=== PATIENT | male | born 1995 | race Hispanic/Latino ===

== ENCOUNTER 2021-02-20 14:09 | Emergency (ER) | payer OTHER ==
[2021-02-20] MEDS ORDERED: TETANUS,DIPH,PERTUSS(ACELL) VACCINE 0.5 ML SYRINGE IM ONE (16:53)
--- NOTE | 2021-02-20 16:55 | Emergency Department Report ---
ED General Adult HPI - General Chief complaint: Extremity Injury, Lower Stated complaint: XRAY OF FOOT Time Seen by Provider: 02/20/21 16:35 Source: patient Mode of arrival: Ambulatory Limitations: No Limitations - History of Present Illness Initial comments: 25-year-old male patient presents with complaints of left foot injury today. He states he dropped a 1300 pound trailer on his left foot and great toe. He reports there was some bleeding. Pain was improved with ibuprofen. He rates his current pain as a 3/10 in severity and denies any numbness or difficulty moving his foot or toes. He is unsure when his last tetanus vaccination was. He denies prior medical history. - Related Data Previous Rx's Medication Instructions Recorded Last Taken Type Ibuprofen [Motrin 800 MG tab] 800 mg PO Q8HR PRN #20 tablet 02/20/21 Unknown Rx cephALEXin [Keflex] 500 mg PO Q8HR 7 Days #21 cap 02/20/21 Unknown Rx Allergies Allergy/AdvReac Type Severity Reaction Status Date / Time No Known Allergies Allergy Unverified 02/20/21 16:23 ED Review of Systems ROS: Stated complaint: XRAY OF FOOT Other details as noted in HPI Musculoskeletal: arthralgia. denies: joint swelling Skin: denies: change in color Neurological: denies: numbness, paresthesias, abnormal gait ED Past Medical Hx - Past Medical History Previous Medical History?: No - Surgical History Past Surgical History?: No - Medications Home Medications: Home Medications Medication Instructions Recorded Confirmed Last Taken Type Ibuprofen [Motrin 800 MG tab] 800 mg PO Q8HR PRN #20 tablet 02/20/21 Unknown Rx cephALEXin [Keflex] 500 mg PO Q8HR 7 Days #21 cap 02/20/21 Unknown Rx ED Physical Exam - General Limitations: No Limitations General appearance: alert, in no apparent distress - Head Head exam: Present: atraumatic, normocephalic - Eye Eye exam: Present: normal appearance. Absent: scleral icterus - Respiratory Respiratory exam: Absent: respiratory distress - Cardiovascular Cardiovascular Exam: Present: regular rate - Extremities Exam Extremities exam: Present: other (Left great toe tenderness to palpation noted with two tiny lacerations not requiring closure; no obvious foreign bodies noted; patient has normal sensation of the toes and foot; normal pedal pulses noted; mild bruising to the great toe noted) - Neurological Exam Neurological exam: Present: alert, oriented X3 - Psychiatric Psychiatric exam: Present: normal affect, normal mood - Skin Skin exam: Present: warm, dry, normal color. Absent: rash ED Course Vital Signs 02/20/21 16:22 Temperature 98.6 F Pulse Rate 68 Respiratory 16 Rate Blood Pressure 135/73 O2 Sat by Pulse 100 Oximetry ED Medical Decision Making - Radiology Data Radiology results: report reviewed XR foot 3+V LT INDICATION: great toe and forefoot crush injury. COMPARISON: No relevant prior imaging study available. FINDINGS: There is a mildly comminuted but minimally displaced longitudinal oblique fracture through the distal phalanx of the great toe. No intra-articular extension is seen. No additional fractures are identified. No foreign bodies are seen in the soft tissues. IMPRESSION: 1. Distal phalanx great toe fracture as above. - Medical Decision Making 25-year-old male patient presents with complaints of left foot injury today. He states he dropped a 1300 pound trailer on his left foot and great toe. He reports there was some bleeding. Pain was improved with ibuprofen. He rates his current pain as a 3/10 in severity and denies any numbness or difficulty moving his foot or toes. He is unsure when his last tetanus vaccination was. He denies prior medical history. X-ray shows comminuted fracture of the distal left great toe. Given small open wounds, patient's foot was soaked in Betadine water solution and irrigated. Sarmad sporin was placed on wound with a sterile dressing. Afshin tape applied to stabilize toe. Discussed open fracture, wound care, and importance of follow-up with orthopedics within 2 to 3 days. Also discussed signs and symptoms that should prompt immediate return to the emergency department in detail with patient who verbalizes understanding. He is well-appearing, his vitals are normal, he is stable for discharge home. Patient states understanding of diagnosis and denies any further questions at this time. Critical care attestation.: If time is entered above; I have spent that time in minutes in the direct care of this critically ill patient, excluding procedure time. ED Disposition Clinical Impression: Open fracture of left great toe Disposition: HOME / SELF CARE / HOMELESS Is pt being admited?: No Condition: Stable Instructions: Toe Fracture, [id number], Nonsutured Laceration Care Prescriptions: cephALEXin [Keflex] 500 mg PO Q8HR 7 Days #21 cap Ibuprofen [Motrin 800 MG tab] 800 mg PO Q8HR PRN #20 tablet PRN Reason: pain Referrals: [facility] [Provider Group] - 2-3 Days Forms: Work/School Release Form(ED)
--- NOTE | 2021-02-20 17:25 | XRay Report ---
XR foot 3+V LT INDICATION: great toe and forefoot crush injury. COMPARISON: No relevant prior imaging study available. FINDINGS: There is a mildly comminuted but minimally displaced longitudinal oblique fracture through the distal phalanx of the great toe. No intra-articular extension is seen. No additional fractures are identifi ed. No foreign bodies are seen in the soft tissues. IMPRESSION: 1. Distal phalanx great toe fracture as above. Signer Name: Giancarlo Waite MD Signed: 02/20/2021 5:21 PM Workstation Name: [id number]
[2021-02-20] MEDS ORDERED: NEOMY 3.5 MG/BACIT 400 UNITS/POLY B 5000 UNITS/GM OINT PACKET TP STA (17:36)
[2021-02-20 20:10] VITALS: BP 123/60
== END 2021-02-20 20:09 | disposition home or self-care (01) ==
LOC: ED 14:09
DX: S92.402B Displaced unspecified fracture of left great toe, initial encounter for open fracture (principal); W04.XXXA Fall while being carried or supported by other persons, initial encounter; Y93.89 Activity, other specified; Y92.89 Other specified places as the place of occurrence of the external cause; Y99.8 Other external cause status
CPT/HCPCS: 73630; 90471; 90715; 96365; 99284; A6250; J0690